=== PATIENT | male | born 1975 | race Caucasian/White ===

== ENCOUNTER 2022-04-05 11:43 | Emergency (ER) | payer MEDICAID ==
[2022-04-05] MEDS ORDERED: Ketorolac 30 MG/ML SDV IM STA (12:09)
== END 2022-04-05 12:27 | disposition home or self-care (01) ==
LOC: FB.ED 11:43
DX: S63.501A Unspecified sprain of right wrist, initial encounter (principal); X50.1XXA Overexertion from prolonged static or awkward postures, initial encounter; Y93.53 Activity, golf
CPT/HCPCS: 73110; 96372; 99281; 99283; J1885